=== PATIENT | male | born 1985 | race Two or more races ===

== ENCOUNTER 2017-09-13 08:16 | Emergency (ER) | payer OTHER ==
[~2017-09-13] VITALS: Ht 170.2 cm; Wt 86.2 kg
[2017-09-13] MEDS ORDERED: NKM (08:26)
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
[2017-09-13] MEDS ORDERED: Bacitracin Oint UD TOPIC ONE (09:00)
[2017-09-13] MEDS ORDERED: IBUPROFEN600 MG ORAL (09:07)
[2017-09-13 09:20] VITALS: BP 125/80
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
--- NOTE | 2017-09-13 10:00 | Diagnostic Imaging Report ---
Indication: PAIN Technique: 3 views of the right knee Comparison: None Findings:No acute fractures. No dislocations. Joint spaces are preserved Impression:Negative
== END 2017-09-13 09:20 | disposition home or self-care (01) ==
LOC: EMR 08:28
DX: S80.11XA Contusion of right lower leg, initial encounter (principal); S80.211A Abrasion, right knee, initial encounter; V03.99XA Pedestrian with other conveyance injured in collision with car, pick-up truck or van, unspecified whether traffic or nontraffic accident, initial encounter; Y93.01 Activity, walking, marching and hiking; Y92.414 Local residential or business street as the place of occurrence of the external cause
CPT/HCPCS: 99283